=== PATIENT | male | born 1980 | race Caucasian/White ===

== ENCOUNTER 2020-08-23 13:44 | Emergency (ER) | payer SELFPAY ==
[~2020-08-23] VITALS: Ht 165.1 cm; Wt 104.3 kg
[2020-08-23 13:46] VITALS: Ht 165.1 cm; Wt 104.3 kg
[2020-08-23 16:50] VITALS: BP 140/76
== END 2020-08-23 16:50 | disposition home or self-care (01) ==
LOC: ED 13:44
DX: J98.9 Respiratory disorder, unspecified (principal); E66.9 Obesity, unspecified; F12.10 Cannabis abuse, uncomplicated
CPT/HCPCS: U0003